=== PATIENT | female | born 1965 | race Caucasian/White ===

== ENCOUNTER → 2016-12-24 | Outpatient (CLI) | payer MEDICARE, OTHER ==
[~2016-12-24] MED LIST: LORT5TAB PO; MEDR4PAK3 PO; Z.0.NO CURRENT MEDS
--- NOTE | 2016-12-24 15:55 | MG ---
cc: ANABELLA TERESA M.D. Lab No: Date: 12/24/2016 Age: Sex: F Race: TEST NUMBER [id number] TECHNIQUE 17 channel EEG. DESCRIPTION The background rhythm is a symmetrical alpha rhythm, frequency 8 Hz, amplitude 20 microvolts. There is occasional muscle artifact and eye movement artifact. Hyperventilation was done with no change in background rhythm, during drowsiness there is mild slowing in the theta range. No lateralizing features are identified and no epileptic features identified. Photic stimulation results in a fairly well-developed symmetrical driving response. INTERPRETATION Normal EEG. MD NEVILLE Payne/FLAKITO /3:47 PM /3:57 PM
== END ==
LOC: HEEG 08:14
PROVIDERS: ATTEND Psychiatry & Neurology Neurology
DX: R42 Dizziness and giddiness (principal)
CPT/HCPCS: 95819

== ENCOUNTER 2017-04-11 16:04 | Emergency (ER) | payer MEDICARE, OTHER ==
[~2017-04-11] VITALS: Ht 172.7 cm; Wt 108.0 kg
[2017-04-11] MEDS ORDERED: IOHEXOL 350 MG/ML 10 ML VIAL (for RAD DIAG) IVCONTRAST ONE (16:05)
[2017-04-11 16:06] VITALS: BP 171/87; PULSE 72; RESP 14; TEMP 97.9; O2SAT 98
[2017-04-11] MEDS ORDERED: SODIUM CHLOR 0.9% 1000 ML INJ 1,000 ML IV SCH (16:43)
[2017-04-11] MEDS ORDERED: ONDANSETRON HCL 4 MG/2 ML VIAL IVP ONE (16:45)
[2017-04-11] MEDS ORDERED: SODIUM CHLORIDE 0.9% FLUSH 10 ML FLUSH IV FLUSH PRN (16:45)
[2017-04-11 16:59] VITALS: RESP 16; O2SAT 98
[2017-04-11] MEDS ORDERED: DIVA250T PO (17:12)
[2017-04-11] MEDS ORDERED: DIME120C PO (17:12)
[2017-04-11 17:34] LABS: AUTOMATED NEUTROPHIL # 7.8 TH/MM3 (1.8-7.7); BASOPHIL % 0.3 % (0.0-2.0); EOSINOPHIL # 3.6 TH/MM3 (0-0.4); EOSINOPHIL % 26.1 % (0.0-4.0); HEMATOCRIT 45.4 % (35.0-46.0); LYMPH % 11.3 % (9.0-44.0); LYMPHOCYTE # 1.6 TH/MM3 (1.0-4.8); MEAN CELL VOLUME 92.9 FL (80.0-100.0); MEAN CORPUSCULAR HEMOGLOBIN 32.7 PG (27.0-34.0); MEAN CORPUSCULAR HGB CONC 35.2 % (32.0-36.0); MEAN PLATELET VOLUME 8.3 FL (7.0-11.0); MONO % 5.5 % (0.0-8.0); MONOCYTE # 0.8 TH/MM3 (0-0.9); NEUT % 56.8 % (16.0-70.0); PLATELET COUNT 189 TH/MM3 (150-450); RED BLOOD COUNT 4.89 MIL/MM3 (4.00-5.30); RED CELL DISTRIBUTION WIDTH 13.4 % (11.6-17.2); WHITE BLOOD COUNT 13.8 TH/MM3 (4.0-11.0)
[2017-04-11 17:44] LABS: INTERNATIONAL NORMALIZED RATIO 1.1 RATIO
[2017-04-11 17:50] VITALS: BP 145/68; PULSE 67; RESP 16; TEMP 97.8; O2SAT 99
[2017-04-11 17:50] LABS: AST (GOT) 29 U/L (15-37); BICARBONATE 34.5 MEQ/L (21.0-32.0); BLOOD UREA NITROGEN 8 MG/DL (7-18); CALCIUM 9.8 MG/DL (8.5-10.1); CHLORIDE 102 MEQ/L (98-107); GLOMERULAR FILTRATION RATE 52 ML/MIN (>89); GLUCOSE,RANDOM 99 MG/DL (74-106); SODIUM (NA) 138 MEQ/L (136-145)
[2017-04-11 17:51] LABS: ALT (GPT) 55 U/L (10-53)
[2017-04-11 17:51] LABS: BILIRUBIN, URINE NEG (NEG); BLOOD, URINE NEG (NEG); GLUCOSE,URINE NEG (NEG); KETONE, URINE NEG (NEG); NITRITE,URINE NEG (NEG); SQUAMOUS EPITHELIAL CELL URINE <1 /hpf (0-5); URINE COLOR LIGHT-YELLOW (YELLW/STRAW); URINE LEUKOCYTE ESTERASE NEG (NEG)
--- NOTE | 2017-04-11 17:51 | PD ---
HPI Chief Complaint: GI Complaint Time Seen by Provider: 16:33 Travel History International Travel<30 days: No Contact w/Intl Traveler<30days: No Traveled to known affect area: No History of Present Illness HPI 51-year-old female with PMH of MS presents to the ED for evaluation of "a few weeks" history of left upper quadrant abdominal pain, nausea, nonbilious vomiting and loose stools. She states that the pain has been intermittent, waxing and waning from a 3-9/10 for the last couple weeks, more constant over the last 3 days. She denies fever, chills, chest pain, palpitations, dysuria. She states that she began taking a Tecfidera for MS and suspects this may be related to her symptoms. She states that she doesn't want to stop taking the medication, because it has been helping her MS symptoms. She endorses history of laparoscopic cholecystectomy. She denies alcohol or illicit drug use. PFSH Past Medical History Neurologic: Yes (MS) Tetanus Vaccination: > 5 Years Influenza Vaccination: Yes ?: Not Menopausal: Yes : 3 Para: 3 Tubal Ligation: Yes Past Surgical History Cholecystectomy: Yes Other Surgery: Yes (thyrodectomy ) Social History Alcohol Use: No Tobacco Use: Yes (1 PPd) Substance Use: No Allergies-Medications (Allergen,Severity, Reaction): Coded Allergies: No Known Allergies (Verified Adverse Reaction, Unknown, 04/11/17) Reported Meds & Prescriptions Reported Meds & Active Scripts Active Zofran Odt (Ondansetron Odt) 4 Mg Tab 4 Mg SL Q8HR PRN Reported Tecfidera (Dimethyl Fumarate) 120 Mg Cap 120 Mg PO BID For [address] (Divalproex Sodium) 250 Mg Tabdr 250 Mg PO BID Review of Systems Except as stated in HPI: all other systems reviewed are Neg Physical Exam Narrative GENERAL: Well-nourished, well-developed obese white female in no acute distress. SKIN: Focused skin assessment warm/dry. HEAD: Normocephalic. EYES: No scleral icterus. No injection or drainage. NECK: Supple, trachea midline. No JVD or lymphadenopathy. CARDIOVASCULAR: Regular rate and rhythm without murmurs, gallops, or rubs. RESPIRATORY: Breath sounds clear and equal bilaterally. No accessory muscle use. GASTROINTESTINAL: Abdomen soft, nondistended. Tender to palpation in the left upper quadrant. Active bowel sounds. No palpable masses. MUSCULOSKELETAL: No cyanosis, or edema. BACK: Nontender without obvious deformity. No CVA tenderness. Data Data Last Documented VS Vital Signs Date Time Temp Pulse Resp B/P (MAP) Pulse Ox O2 Delivery O2 Flow Rate FiO2 04/11/17 20:24 04/11/17 20:00 70 18 96 Room Air 04/11/17 17:50 97.8 Orders Orders Complete Blood Count With Diff (04/11/17 16:43) Comprehensive Metabolic Panel (04/11/17 16:43) Lipase (04/11/17 16:43) Lactic Acid (04/11/17 16:43) Prothrombin Time / Inr (Pt) (04/11/17 16:43) Act Partial Throm Time (Ptt) (04/11/17 16:43) Urinalysis - C+S If Indicated (04/11/17 16:43) Ct Abd/Pel W Iv Contrast(Rout) (04/11/17 16:43) Iv Access Insert/Monitor (04/11/17 16:43) Ecg Monitoring (04/11/17 16:43) Oximetry (04/11/17 16:43) Ondansetron Inj (Zofran Inj) (04/11/17 16:45) Sodium Chlor 0.9% 1000 Ml Inj (Ns 1000 M (04/11/17 16:43) Sodium Chloride 0.9% Flush (Ns Flush) (04/11/17 16:45) Iohexol 350 Inj (Omnipaque 350 Inj) (04/11/17 16:05) Famotidine Inj (Pepcid Inj) (04/11/17 20:00) Al-Mag Hy-Si 40-40-4 Mg/Ml Liq (Mag-Al P (04/11/17 20:00) Lidocaine 2% Viscous (Xylocaine 2% Visco (04/11/17 20:00) Ed Discharge Order (04/11/17 20:06) Labs Laboratory Tests Test 04/11/17 17:00 04/11/17 17:20 04/11/17 17:35 Lactic Acid Level 1.2 mmol/L White Blood Count 13.8 TH/MM3 Red Blood Count 4.89 MIL/MM3 Hemoglobin 16.0 GM/DL Hematocrit 45.4 % Mean Corpuscular Volume 92.9 FL Mean Corpuscular Hemoglobin 32.7 PG Mean Corpuscular Hemoglobin Concent 35.2 % Red Cell Distribution Width 13.4 % Platelet Count 189 TH/MM3 Mean Platelet Volume 8.3 FL Neutrophils (%) (Auto) 56.8 % Lymphocytes (%) (Auto) 11.3 % Monocytes (%) (Auto) 5.5 % Eosinophils (%) (Auto) 26.1 % Basophils (%) (Auto) 0.3 % Neutrophils # (Auto) 7.8 TH/MM3 Lymphocytes # (Auto) 1.6 TH/MM3 Monocytes # (Auto) 0.8 TH/MM3 Eosinophils # (Auto) 3.6 TH/MM3 Basophils # (Auto) 0.0 TH/MM3 CBC Comment DIFF FINAL Differential Comment Prothrombin Time 11.0 SEC Prothromb Time International Ratio 1.1 RATIO Activated Partial Thromboplast Time 28.4 SEC Blood Urea Nitrogen 8 MG/DL Creatinine 1.10 MG/DL Random Glucose 99 MG/DL Total Protein 7.4 GM/DL Albumin 4.0 GM/DL Calcium Level 9.8 MG/DL Alkaline Phosphatase 84 U/L Aspartate Amino Transf (AST/SGOT) 29 U/L Alanine Aminotransferase (ALT/SGPT) 55 U/L Total Bilirubin 0.5 MG/DL Sodium Level 138 MEQ/L Potassium Level 4.5 MEQ/L Chloride Level 102 MEQ/L Carbon Dioxide Level 34.5 MEQ/L Anion Gap 2 MEQ/L Estimat Glomerular Filtration Rate 52 ML/MIN Lipase 67 U/L Urine Color LIGHT-YELLOW Urine Turbidity CLEAR Urine pH 7.0 Urine Specific [place] 1.005 Urine Protein NEG mg/dL Urine Glucose (UA) NEG mg/dL Urine Ketones NEG mg/dL Urine Occult Blood NEG Urine Nitrite NEG Urine Bilirubin NEG Urine Urobilinogen LESS THAN 2.0 MG/DL Urine Leukocyte Esterase NEG Urine RBC LESS THAN 1 /hpf Urine WBC 1 /hpf Urine Squamous Epithelial Cells <1 /hpf Microscopic Urinalysis Comment CULT NOT INDICATED MDM Medical Decision Making Medical Screen Exam Complete: Yes Emergency Medical Condition: Yes Differential Diagnosis pancreatitis versus hiatal hernia versus biliary colic versus other Narrative Course 51-year-old female with PMH of MS presents to the ED for evaluation of "a few weeks" history of LUQ pain, nausea, nonbilious vomiting and loose stools. She states that the pain has been intermittent, waxing and waning from a 3-9/10 for the last couple weeks, more constant over the last 3 days. She states that she began taking a Tecfidera for MS and suspects this may be related to her symptoms. She endorses history of laparoscopic cholecystectomy. She denies alcohol or illicit drug use. Vitals reviewed. Physical exam reveals tenderness to palpation in the left upper quadrant, otherwise unremarkable. IV was established. Patient was administered 1 L normal saline, 4 mg Zofran. I offered her pain medications which she declines. Total Protein 7.4, Albumin 4.0, Calcium Level 9.8, Alkaline Phosphatase 84, Aspartate Amino Transf (AST/SGOT) 29, Alanine Aminotransferase (ALT/SGPT) 55 H, Total Bilirubin 0.5 Coags: INR 1.1. UA: No culture indicated. CT abdomen and pelvis: No abnormality identified to explain LUQ pain. No acute findings identified. No acute findings included multi fibroid uterus, sigmoid diverticulosis and hepatic steatosis. Per radiology read. Discussed the results of the workup with the patient. We reviewed the side effects protect that area which are significant for abdominal pain, nausea, loose stools. She states that her pain is now at a level III. Should like to try a GI cocktail. Ultimately I think her symptoms are likely side effects from her medication. I advised her to follow-up with Dr. Harrison to review possibly decreasing the medication. She is provided a few doses of Zofran, instructed to return for worsening symptoms. She is agreeable with the plan. She is stable and discharged home. Diagnosis Primary Impression: Abdominal pain Qualified Codes: R10.12 - Left upper quadrant pain Additional Impression: Medication side effects Referrals: Primary Care Physician Patient Instructions: Abdominal Pain (ED), Diet for Stomach Ulcers and Gastritis (ED), General Instructions Additional Instructions: Rest, hydrate. Eat a bland diet for the next few days and gradually introduce new foods. Take Zofran as needed for nausea and vomiting. Talk with your doctor about the side effect of Tecfidera. Always take Techfidera with food. Follow up with the primary care provider and hired hand. Return to the ED for worsening symptoms or any urgent/ emergent medical condition. Med/Other Pt SpecificInfo: Prescription(s) given Scripts Ondansetron Odt (Zofran Odt) 4 Mg Tab 4 MG SL Q8HR Y for Nausea/Vomiting, #5 TAB 0 Refills Prov: May Sanchez MD 04/11/17 Disposition: 01 DISCHARGE HOME Condition: Stable Stefanie Odonnell Apr 11, 2017 17:51
[2017-04-11 17:54] LABS: ALKALINE PHOSPHATASE 84 U/L (45-117); TOTAL BILIRUBIN ADULT 0.5 MG/DL (0.2-1.0); TOTAL PROTEIN 7.4 GM/DL (6.4-8.2)
--- NOTE | 2017-04-11 19:08 | RADRPT ---
EXAM DATE/TIME: 04/11/2017 18:51 [facility] COMPARISON: No previous studies available for comparison. INDICATIONS : Left upper quadrant pain with nausea and vomiting. IV CONTRAST: 80 cc Omnipaque 350 (iohexol) IV ORAL CONTRAST: No oral contrast ingested. RADIATION DOSE: 25.90 CTDIvol (mGy) ; Patient body habitus MEDICAL HISTORY : Multple sclerosis. SURGICAL HISTORY : Cholecystectomy. ENCOUNTER: Initial ACUITY: 3 days PAIN SCALE: 7/10 LOCATION: Left upper quadrant TECHNIQUE: Volumetric scanning of the abdomen and pelvis was performed. Using automated exposure control and ad justment of the mA and/or kV according to patient size, radiation dose was kept as low as reasonably achievable to obtain optimal diagnostic quality images. DICOM format image data is available electro nically for review and comparison. FINDINGS: LOWER LUNGS: The visualized lower lungs are clear. LIVER: Liver density suggesting a ptosis. No liver lesion is identified. There are clips in the gallbladder fossa related to prior cholecystectomy. There is no dilation of the biliary tree. SPLEEN: Normal size without lesion. A splenule is present. PANCREAS: Within normal limits. KIDNEYS: Normal in size and shape. There is no mass, stone or hydronephrosis. ADRENAL GLANDS: Within normal limits. VASCULAR: There is no aortic aneurysm. BOWEL/MESENTERY: The stomach, small bowel, and colon demonstrate no acute abnormality. There is no free intraperitone al air or fluid. Appendix and terminal ileum are normal. There is mild sigmoid diverticulosis. There are no findings to indicate obstruction. ABDOMINAL WALL: Within normal limits. RETROPERITONEUM: There is no lymphadenopathy. BLADDER: No wall thickening or mass. REPRODUCTIVE: Uterus demonstrates a lobulated contour with right-sided exophytic mass measuring 2.1 cm and a hypode nse fundal mass measuring 1.9 cm. Tubal ligation clips are present. Ovaries demonstrate no abnormalit y. INGUINAL: There is no lymphadenopathy or hernia. MUSCULOSKELETAL: There are degenerative changes of the lumbar spine but no acute abnormality is seen. CONCLUSION: 1. No abnormality is identified to explain the left upper quadrant pain. No acute finding is identifi ed. 2. Nonacute findings include multi-fibroid uterus, sigmoid diverticulosis, and hepatic steatosis. Mo Howard MD on April 11, 2017 at 19:02 Board Certified Radiologist. This report was verified electronically.
[2017-04-11] MEDS ORDERED: ZOFR4TAB3 SL (19:39)
[2017-04-11 20:00] VITALS: BP 142/60; PULSE 70; RESP 18; O2SAT 96
[2017-04-11] MEDS ORDERED: ALUMINUM/MAGNESIUM/SIMETH 30 ML CUP PO ONE (20:00)
[2017-04-11] MEDS ORDERED: FAMOTIDINE 20 MG/2 ML VIAL IV PUSH ONE (20:00)
[2017-04-11] MEDS ORDERED: LIDOCAINE VISCOUS 2% SOLN 15 ML UDC PO ONE (20:00)
== END 2017-04-11 20:27 | disposition home or self-care (01) ==
LOC: NEPC 16:04
DX: R10.12 Left upper quadrant pain (principal); F17.200 Nicotine dependence, unspecified, uncomplicated
CPT/HCPCS: 74177; 80053; 81001; 83605; 83690; 85025; 85610; 85730; 96361; 96374; 96375; 99284; J2405; J7030; Q9967

== ENCOUNTER 2018-04-11 07:09 | Inpatient (IN) ==
[2018-04-11] MEDS ORDERED: Sod Chloride 0.9% Inj 1,000 ML IV.SIG ONE (07:38)
[2018-04-11] MEDS ORDERED: MethylPREDNISolone Sod Suc Inj 250 MG in Sodium Chlor 0.9% Inj 100 ML IV.SIG ONE (07:43)
--- NOTE | 2018-04-11 07:54 | ED ---
HPI General Chief Complaint: Dizziness Stated Complaint: MS related Time Seen by Provider: 04/11/18 07:19 Source: patient Mode of arrival: ambulatory Limitations: no limitations History of Present Illness HPI Narrative: heme is dr maureen markham pmhx: MS on tysarbi, pshx: gb, partial thyroidectomy. patient states that she has been having more progressive symptoms of dizziness, lightheaded, double vision that is transient, feels tingling to left side of face and left arm, all of these are her usual symptoms of MS Flare onset of 2 days. patient denies n/v/d/fever/cough/runny nose and sore throat. MD complaint: Reports dizziness Timing: gradual onset Description: Reports sense of movement, off-balance and difficulty walking History of similar episodes: Yes History of trauma: No Severity: mild Relieving factors: nothing Exacerbating factors: nothing Related Data Home Medications Medication Instructions Recorded Confirmed natalizumab [Tysabri] 300 mg IV Q28D 04/11/18 04/11/18 Allergies Allergy/AdvReac Type Severity Reaction Status Date / Time No Known Allergies Allergy Verified 04/11/18 07:20 Review of Systems ROS: all other systems reviewed are negative PMFSH History History Provided By: Patient Medical History Medical History FH: cholecystectomy (Acute) Multiple sclerosis (Acute) Surgical History Surgical History H/O partial thyroidectomy (Acute) Social History Social History Substance History: No History of Abuse Smoking Status: Current every day smoker Tobacco Type: Cigarettes How Often Do You Have a Drink Containing Alcohol: Never Recent Travel in [facility] within the Last 8 Weeks: No Recent Out of Country Travel within the Last 8 Weeks: No Immunization History Tetanus Immunization: Unsure Exam Narrative Exam Narrative: GENERAL: Well-nourished, well-developed patient in no apparent distress. SKIN: Warm and dry. HEAD: Atraumatic. Normocephalic. EYES: Pupils equal and round. No scleral icterus. No injection or drainage. ENT: No nasal bleeding or discharge. Mucous membranes pink and moist. NECK: Trachea midline. No JVD. CARDIOVASCULAR: Regular rate and rhythm. no rubs or gallops RESPIRATORY: No accessory muscle use. Clear to auscultation. Breath sounds equal bilaterally. GASTROINTESTINAL: Abdomen soft, non-tender, nondistended. No rebound or guarding MUSCULOSKELETAL: Extremities without clubbing, cyanosis, or edema. No obvious deformities. NEUROLOGICAL: Awake and alert. No obvious cranial nerve deficits. Motor grossly within normal limits. Five out of 5 muscle strength in the arms and legs. Normal speech. PSYCHIATRIC: Appropriate mood and affect; insight and judgment normal. Course Initial Documented Vital Signs Temperature 97.6 F 04/11/18 07:11 Pulse Rate 84 04/11/18 07:11 Respiratory Rate 18 04/11/18 07:11 Blood Pressure 159/80 H 04/11/18 07:11 Pulse Oximetry 100 04/11/18 07:11 Last Documented Vital Signs Temperature 97.6 F 04/11/18 07:11 Pulse Rate 84 04/11/18 07:11 Respiratory Rate 18 04/11/18 07:11 Blood Pressure 159/80 H 04/11/18 07:11 Pulse Oximetry 100 04/11/18 07:11 Medical Decision Making [facility] Narrative Medical decision making narrative: Chest x-ray read as negative for acute process by radiologist Patient has reactive leukocytosis of 12.5 but without any left shift. No evidence of any anemia and also normal platelet count Coagulation profile normal Electrolytes are all within normal limits Normal liver function Renal insufficiency with a creatinine of 1.22 and a GFR estimated of 46 this is relatively close to patient's previous going back to March 2017 Medical Screen Exam Complete: Yes Emergency Medical Condition: Yes Medical Records Medical records reviewed: Yes I reviewed the patient's medical records. Lab Data Result diagrams: 04/11/18 07:40 04/11/18 07:40 Lab Results 04/11/18 04/11/18 04/11/18 Range/Units 07:40 07:40 08:19 WBC 12.5 H (4.0-11.0) th/mm3 RBC 5.03 (4.00-5.30) mil/mm3 Hgb 15.9 H (11.6-15.3) gm/dL Hct 45.6 (35.0-46.0) % MCV 90.8 (80.0-100.0) fL MCH 31.6 (27.0-34.0) pg MCHC 34.8 (32.0-36.0) % RDW 13.2 (11.6-17.2) % Plt Count 279 (150-450) th/mm3 MPV 8.7 (7.0-11.0) fL Neut % (Auto) 54.1 (16.0-70.0) % Lymph % (Auto) 36.0 (9.0-44.0) % [place] % (Auto) 8.5 H (0.0-8.0) % Eos % (Auto) 0.9 (0.0-4.0) % Baso % (Auto) 0.5 (0.0-2.0) % Neut # (Auto) 6.8 (1.8-7.7) th/mm3 Lymph # (Auto) 4.5 (1.0-4.8) th/mm3 [place] # (Auto) 1.1 H (0.0-0.9) th/mm3 Eos # (Auto) 0.1 (0.0-0.4) th/mm3 Baso # (Auto) 0.1 (0.0-0.2) th/mm3 WBC Differential . Differential Comment Auto diff final Sodium 141 (136-145) meq/L Potassium 3.8 (3.5-5.1) meq/L Chloride 108 H (98-107) meq/L Carbon Dioxide 24.1 (21.0-32.0) meq/L Anion Gap 9 (5-15) meq/L BUN 17 (7-18) mg/dL Creatinine 1.22 H (0.50-1.00) mg/dL Estimated GFR 46 L (>89) mL/min Random Glucose 119 H (74-106) mg/dL Calcium 9.0 (8.5-10.1) mg/dL Total Bilirubin 0.5 (0.2-1.0) mg/dL AST 16 (15-37) U/L ALT 23 (10-53) U/L Alkaline Phosphatase 113 (45-117) U/L Total Protein 8.1 (6.4-8.2) g/dL Albumin 4.4 (3.4-5.0) g/dL Urine Color (Yellw/Straw) Urine Clarity (Clear) Urine pH (5.0-8.5) Ur Specific [place] (1.002-1.035) Urine Protein (Neg-Trace) mg/dL Urine Glucose (UA) (Negative) mg/dL Urine Ketones (Negative) mg/dL Urine Occult Blood (Negative) Urine Nitrate (Negative) Urine Bilirubin (Negative) Urine Urobilinogen (Less than 2) mg/dL Ur Leukocyte Esterase (Negative) Urine RBC (0-3) /hpf Urine WBC (0-5) /hpf Ur Squamous Epith Cells (0-5) /hpf Urine Bacteria (None) /hpf Micro UA Comment Ur Microscopic Review Urine Culture Comments Urine Opiates Screen Neg (Neg) Ur Barbiturates Screen Neg (Neg) Ur Amphetamines Screen Neg (Neg) U Benzodiazepines Scrn Neg (Neg) Urine Cocaine Screen Neg (Neg) U Cannabinoids Screen Neg (Neg) 04/11/18 Range/Units 08:19 WBC (4.0-11.0) th/mm3 RBC (4.00-5.30) mil/mm3 Hgb (11.6-15.3) gm/dL Hct (35.0-46.0) % MCV (80.0-100.0) fL MCH (27.0-34.0) pg MCHC (32.0-36.0) % RDW (11.6-17.2) % Plt Count (150-450) th/mm3 MPV (7.0-11.0) fL Neut % (Auto) (16.0-70.0) % Lymph % (Auto) (9.0-44.0) % [place] % (Auto) (0.0-8.0) % Eos % (Auto) (0.0-4.0) % Baso % (Auto) (0.0-2.0) % Neut # (Auto) (1.8-7.7) th/mm3 Lymph # (Auto) (1.0-4.8) th/mm3 [place] # (Auto) (0.0-0.9) th/mm3 Eos # (Auto) (0.0-0.4) th/mm3 Baso # (Auto) (0.0-0.2) th/mm3 WBC Differential Differential Comment Sodium (136-145) meq/L Potassium (3.5-5.1) meq/L Chloride (98-107) meq/L Carbon Dioxide (21.0-32.0) meq/L Anion Gap (5-15) meq/L BUN (7-18) mg/dL Creatinine (0.50-1.00) mg/dL Estimated GFR (>89) mL/min Random Glucose (74-106) mg/dL Calcium (8.5-10.1) mg/dL Total Bilirubin (0.2-1.0) mg/dL AST (15-37) U/L ALT (10-53) U/L Alkaline Phosphatase (45-117) U/L Total Protein (6.4-8.2) g/dL Albumin (3.4-5.0) g/dL Urine Color Yellow (Yellw/Straw) Urine Clarity Hazy H (Clear) Urine pH 6.0 (5.0-8.5) Ur Specific [place] 1.014 (1.002-1.035) Urine Protein Negative (Neg-Trace) mg/dL Urine Glucose (UA) Negative (Negative) mg/dL Urine Ketones Trace H (Negative) mg/dL Urine Occult Blood Negative (Negative) Urine Nitrate Negative (Negative) Urine Bilirubin Negative (Negative) Urine Urobilinogen Less than 2 (Less than 2) mg/dL Ur Leukocyte Esterase Negative (Negative) Urine RBC Less than 1 (0-3) /hpf Urine WBC Less than 1 (0-5) /hpf Ur Squamous Epith Cells 1 (0-5) /hpf Urine Bacteria Rare H (None) /hpf Micro UA Comment Culture not ind Ur Microscopic Review Not Reportable Urine Culture Comments Culture not ind Urine Opiates Screen (Neg) Ur Barbiturates Screen (Neg) Ur Amphetamines Screen (Neg) U Benzodiazepines Scrn (Neg) Urine Cocaine Screen (Neg) U Cannabinoids Screen (Neg) Imaging Data Radiologist's impression: Chest X-Ray 04/11/18 07:38 CONCLUSION: Negative for acute process Discharge Plan Discharge Disposition Patient Disposition: ED Admit(ED Internal Use Only) Discharge Condition Condition: Stable Discharge Details Diagnosis: Multiple sclerosis exacerbation Physicians Team ED Provider: Jose F Franklin Primary Care Provider: Primary Care MinnaiJune Rxs /Orders / Referrals /Forms Prescriptions: No Action natalizumab [Tysabri] 300 mg/15 mL Solution 300 mg IV Q28D RF: 0 Status ED Status: With Doctor
--- NOTE | 2018-04-11 08:07 | XR ---
EXAM DATE: 04/11/2018 8:01 AM EST AGE/SEX: 52 years / Female INDICATIONS: Cough and dizziness. CLINICAL DATA: This is the patient's initial encounter. Patient reports that signs and symptoms have been present for 4 - 6 days and indicates a pain score of 0/10. MEDICAL/SURGICAL HISTORY: Multiple sclerosis. Cholecystectomy. COMPARISON: No prior exams available for comparison. FINDINGS: A single AP view of the chest demonstrates the lungs to be symmetrically aerated without evidence of mass, infiltrate or effusion. The cardiomediastinal contours are unremarkable. Osseous structures a re intact. CONCLUSION: Negative for acute process Electronically signed by: Danny Novak MD Board Certified Radiologist 04/11/2018 8:06 AM EST
[2018-04-11 08:22] LABS: Baso # (Auto) 0.1 th/mm3 (0.0-0.2); Baso % (Auto) 0.5 % (0.0-2.0); Eos # (Auto) 0.1 th/mm3 (0.0-0.4); Eos % (Auto) 0.9 % (0.0-4.0); Hematocrit 45.6 % (35.0-46.0); Hemoglobin 15.9 gm/dL (11.6-15.3); Lymph # (Auto) 4.5 th/mm3 (1.0-4.8); Mean Corpuscular HGB Conc 34.8 % (32.0-36.0); Mean Corpuscular Hemoglobin 31.6 pg (27.0-34.0); Mean Corpuscular Volume 90.8 fL (80.0-100.0); Mean Platelet Volume 8.7 fL (7.0-11.0); Mono # (Auto) 1.1 th/mm3 (0.0-0.9); Mono % (Auto) 8.5 % (0.0-8.0); Neut # (Auto) 6.8 th/mm3 (1.8-7.7); Neut % (Auto) 54.1 % (16.0-70.0); Platelet Count 279 th/mm3 (150-450); Red Blood Count 5.03 mil/mm3 (4.00-5.30); Red Cell Distribution Width 13.2 % (11.6-17.2); White Blood Count 12.5 th/mm3 (4.0-11.0)
[2018-04-11 08:33] LABS: Bacteria,Urine Rare /hpf; Bilirubin,Urine Negative (Negative); Clarity,Urine Hazy (Clear); Color,Urine Yellow (Yellw/Straw); Glucose,Urine (UA) Negative (Negative); Leukocyte Esterase,Urine Negative (Negative); Nitrite,Urine Negative (Negative); Specific Gravity,Urine 1.014 (1.002-1.035); Squamous Epithelial Cell,Urine 1 /hpf (0-5)
[2018-04-11 08:36] LABS: Albumin 4.4 g/dL (3.4-5.0); Anion Gap 9 meq/L (5-15); Aspartate Aminotransferase 16 U/L (15-37); Blood Urea Nitrogen 17 mg/dL (7-18); Carbon Dioxide 24.1 meq/L (21.0-32.0); Chloride 108 meq/L (98-107); Glomerular Filtration Rate 46 mL/min (>89); Glucose,Random 119 mg/dL (74-106); Potassium 3.8 meq/L (3.5-5.1); Sodium 141 meq/L (136-145)
[2018-04-11 08:38] LABS: Alanine Aminotransferase 23 U/L (10-53); Alkaline Phosphatase 113 U/L (45-117); Total Protein 8.1 g/dL (6.4-8.2)
[2018-04-11 08:39] LABS: Amphetamine Screen,Urine Neg (Neg); Barbiturate Screen,Urine Neg (Neg); Cannabinoid Screen,Urine Neg (Neg); Cocaine Screen,Urine Neg (Neg)
[2018-04-11 08:46] LABS: Opiate Screen,Urine Neg (Neg)
--- NOTE | 2018-04-11 09:53 | P.HPIM ---
History of Present Illness Primary Care Physician: No Primary Care Physician Chief Complaint: ' I've got my MS symptoms back'. History of Present Illness: patient is a 52 y/o female with history of MS- on Tysabri- last infusion two weeks ago, presented to ER with worsening tingling of the left upper and lower extremity and right eye diplopia. she says that right after her Tysabri infusion she started to have some ' cold symptoms' after which she started to have some tingling of the left hand and leg and had some right eye diplopia. she says that ' she's been somewhat off balance' recently. she says that she probably has some low grade fever at home.she's being followed up by and . Review of Systems Review of Systems: all other systems reviewed are negative [facility] Medical History Medical History FH: cholecystectomy (Acute) Multiple sclerosis (Acute) Surgical History Surgical History H/O partial thyroidectomy (Acute) Social History Social History Substance History: No History of Abuse Second Hand Smoke Exposure: No Smoking Status: Current every day smoker Tobacco Type: Cigarettes How Often Do You Have a Drink Containing Alcohol: Never Recent Travel in [facility] within the Last 8 Weeks: No Recent Out of Country Travel within the Last 8 Weeks: No Immunization History Tetanus Immunization: Unsure Medications and Allergies Allergies Allergy/AdvReac Type Severity Reaction Status Date / Time No Known Allergies Allergy Verified 04/11/18 07:20 Home Medications Medication Instructions Recorded Confirmed Type natalizumab [Tysabri] 300 mg IV Q28D 04/11/18 04/11/18 History topiramate 50 mg PO DAILY 04/11/18 04/11/18 History topiramate [Topamax] 50 mg PO DAILY 04/11/18 04/11/18 History Active Medications: Active Medications Sodium Chloride (Ns Flush) 2 ml IV.FLUSH PRN PRN PRN Reason: FLUSH AFTER USING IV ACCESS Physical Exam Vital signs: Vital Signs 04/11/18 07:11 Temperature 97.6 F Pulse Rate 84 Respiratory Rate 18 Blood Pressure 159/80 H Pulse Oximetry 100 Intake & Output 04/10/18 04/11/18 04/11/18 18:59 06:59 18:59 Intake Total 1104 / 1104 Balance 1104 / 1104 Weight 105.687 kg Intake: IV 1104 / 1104 SoluMEDROL Inj 250 MG In NS Inj 104 / 104 100 ML @ 200 mls/hr IV.SIG ONCE ONE Rx#:[id number] NS Inj 1,000 ML @ Wide Open IV. 1000 / 1000 SIG BOLUS ONE Rx#:[id number] Constitutional no acute distress Routine HEENT Exam Eye: Present PERRL Routine Neck Exam Present supple Routine Respiratory Exam Present CTA bilaterally Routine Cardiovascular Exam Present RRR Routine Abdominal Exam Present soft Routine Extremities Exam Comments: no pedal edema. Routine Neurological Exam Present alert and oriented X3 Results Labs CBC & Chem 7: 04/11/18 07:40 04/11/18 07:40 Imaging Impressions Chest X-Ray 04/11/18 07:38 CONCLUSION: Negative for acute process Caprini VTE Risk Assessment Caprini VTE Risk Assessment: Moderate/High Risk (score >= 2) Caprini Risk Assessment Model: Point Value = 1 Point Value = 2 Point Value = 3 Point Value = 5 Age 41-60 Minor surgery BMI > 25 kg/m2 Swollen legs Varicose veins or History of unexplained or recurrent spontaneous Oral contraceptives or hormone replacement Sepsis (< 1 month) Serious lung disease, including pneumonia (< 1 month) Abnormal pulmonary function Acute myocardial infarction Congestive heart failure (< 1 month) History of inflammatory bowel disease Medical patient at bed rest Age 61-74 Arthroscopic surgery Major open surgery (> 45 min) Laparoscopic surgery (> 45 min) Malignancy Confined to bed (> 72 hours) Immobilizing plaster cast Central venous access Age >= 75 History of VTE Family history of VTE Factor V Leiden Prothrombin [id number] Lupus anticoagulant Anticardiolipin antibodies Elevated serum homocysteine Heparin-induced thrombocytopenia Other congenital or acquired thrombophilia Stroke (< 1 month) Elective arthroplasty Hip, pelvis, or leg fracture Acute spinal cord injury (< 1 month) Prophylaxis Regimen: Total Risk Factor Score Risk Level Prophylaxis Regimen 0-1 Low Early ambulation 2 Moderate Order ONE of the following: *Sequential Compression Device (SCD) *Heparin 5000 units SQ BID 3-4 Higher Order ONE of the following medications: *Heparin 5000 units SQ TID *Enoxaparin/Lovenox 40 mg SQ daily (WT < 150 kg, CrCl > 30 mL/min) *Enoxaparin/Lovenox 30 mg SQ daily (WT < 150 kg, CrCl > 10-29 mL/min) *Enoxaparin/Lovenox 30 mg SQ BID (WT < 150 kg, CrCl > 30 mL/min) AND/OR *Sequential Compression Device (SCD) 5 or more Highest Order ONE of the following medications: *Heparin 5000 units SQ TID (Preferred with Epidurals) *Enoxaparin/Lovenox 40 mg SQ daily (WT < 150 kg, CrCl > 30 mL/min) *Enoxaparin/Lovenox 30 mg SQ daily (WT < 150 kg, CrCl > 10-29 mL/min) *Enoxaparin/Lovenox 30 mg SQ BID (WT < 150 kg, CrCl > 30 mL/min) AND *Sequential Compression Device (SCD) Assessment and Plan Plan A/P - MS exacerbation- on Tysabri- last infusion two weeks ago received IV steroids in ER- will consult neurology- will consider Hematology evaluation pending neurology recommendations. consult PT. -DVT prophylaxis with scd's. Discussed Condition With: ER physician and the patient.
[2018-04-11] MEDS: Sod Chloride 0.9% Inj 1,000 ML IV.CONT SCH ×2 (12:22→22:29)
[2018-04-11] MEDS ORDERED: Gadobutrol PF 10 MMOL/10 ML Vial (for RAD) IV.SIG ONE (16:43)
--- NOTE | 2018-04-11 17:01 | MR ---
EXAM DATE: 04/11/2018 4:54 PM EST AGE/SEX: 52 years / Female INDICATIONS: . Exacerbation of multiple sclerosis. CLINICAL DATA: This is the patient's initial encounter. Patient reports that signs and symptoms have been present for 1 day and indicates a pain score of 0/10. MEDICAL/SURGICAL HISTORY: Multiple sclerosis. Cholecystectomy. Thyroidectomy. COMPARISON: [facility] [place], CT BRAIN W/O CONTRAST, 12/04/2010. . TECHNIQUE: Multiplanar, multisequence examination of the brain was performed without and with 10 ml G adavist (gadobutrol) contrast as a single exam dose. FINDINGS: Cerebrum: The ventricles are normal for age. No evidence of midline shift, mass lesion, hemorrhage or acute infarction. No extraaxial fluid collections are seen. The pituitary gland and suprasellar cistern are normal in configuration. White Matter: Focal periventricular white matter T2 prolongation including focal lesion involving th e right body of the corpus callosum. Posterior Fossa: The cerebellum and brainstem are intact. The 4th ventricle is midline. The cerebel lopontine angle is unremarkable. The cerebellar tonsils are normal in position. Diffusion Imaging: No focal areas of restricted diffusion are seen. No evidence of acute infarction . Extracranial: The visualized portions of the orbits and paranasal sinuses are unremarkable. Post Contrast: No abnormal areas of parenchymal or dural enhancement. No evidence of blood-brain ba rrier breakdown. CONCLUSION: 1. Focal periventricular white matter signal abnormalities which involve the body of the corpus call osum on the right consistent with patient's history of multiple sclerosis. No associated abnormal enh ancement or restricted diffusion to suggest active plaque. Electronically signed by: Derrek Tobin MD Board Certified Radiologist 04/11/2018 5:00 PM EST
[2018-04-11] MEDS ORDERED: Topiramate 25 MG Tablet PO ONE (21:35)
--- NOTE | 2018-04-12 | MB ---
cc: Sander Steven MD DATE: 04/11/2018 REASON FOR CONSULTATION: Multiple sclerosis. HISTORY OF PRESENT ILLNESS: A 52-year-old female seen at the [facility] Emergency Room for evaluation of history of MS. The patient states that she has been diagnosed with MS since 2003 at [place], then she moved to [place] and follows up with Dr. Harrison and she states that "I have MS all over in my brain and in my spine." She also states that she has "a lot of lesions in my brain." However, she denies any history of lumbar puncture. She complains of symptoms of double vision, blurred vision, dizziness, occasional vertigo. Denies speech difficulty or weakness of extremity. She denies being on steroids. However, she states that she was on Copaxone or Tecfidera that did not work for her and currently she is on Tysabri. She received 2 transfusions with 20 days apart. Last transfusion was 2 weeks ago. She presents with tingling sensation in the hand and leg with some right eye double vision, and she has been somewhat off-balance recently. She follows up also with Dr. Martinez, hematology, for the transfusion aspects of Tysabri. The patient states that she has done MRIs in the past. No records are available. REVIEW OF REVIEW OF SYSTEMS: A 12-point review of system is negative, except for what is stated in the HPI. PAST MEDICAL HISTORY: Multiple sclerosis. PAST SURGICAL HISTORY: Cholecystectomy, partial thyroidectomy. SOCIAL HISTORY: No history of abuse, current everyday smoker. No alcohol. MEDICATIONS: Tysabri, topiramate. ALLERGIES: NO KNOWN ALLERGIES. FAMILY HISTORY: Noncontributory. PHYSICAL EXAMINATION: GENERAL: Awake, alert, oriented, overweight, good historian. HEENT: Atraumatic, normocephalic. Intact hearing and intact vision. NECK: Supple. No signs of meningeal irritation. No carotid bruits. CARDIOVASCULAR: Regular rate and rhythm. RESPIRATORY: Clear to auscultation. No wheezes. MUSCULOSKELETAL: Moves extremities equally. No edema. NEUROLOGIC: Awake, alert and oriented to person and place. Intact external ocular motility. No nystagmus. No diplopia. No facial asymmetry. No speech difficulty. No dysarthria or dysphasia. Moves extremities equally, 5/5 bilateral and symmetrical. Reflexes 2+ bilateral, symmetrical. Plantars are bilateral downgoing. Normal coordination. Gait is deferred. PSYCHIATRIC: Cooperative. Normal mood and behavior. No hallucinations. RESULTS: White blood cell 12.5, hemoglobin 15.9. Sodium 141, potassium 3.8, BUN 17, creatinine 1.22. LFTs normal. Urine tox is negative. IMPRESSION AND PLAN: 1. History of multiple sclerosis. 2. Follows up with Dr. Harrison, currently on Tysabri, received second dose 2 weeks ago. 3. Complains of visual blurring, vertigo, diplopia. 4. I discussed the case with Dr. Liang, the attending physician, and given that we do not have any previous imaging, the plan is to do an MRI brain with and without contrast for possible new demyelinating lesions and to set a base of her radiologic diagnosis of MS and to set a plan for further neurologic workup based on the findings on MRI of the brain. 5. There is no clinical indication to start the patient on steroids. 6. Neurology will follow up. The patient was discussed with the attending physician. Thank you for the opportunity to participate in the care of your patient. MD LANA Pablo/rw/do , 09:22 PM , 09:32 PM
[2018-04-12] MEDS ORDERED: Sodium Chloride 0.9% 2 ML Flush PRN IV.FLUSH (03:53)
[2018-04-12 07:25] VITALS: RESP 16
[2018-04-12] MEDS ORDERED: Sodium Chloride 0.9% 2 ML Flush BID IV.FLUSH SCH (09:00)
--- NOTE | 2018-04-12 10:15 | P.PNIM ---
Subjective Interval history: f/u; MS in no acute distress. looks and feels better today. no new complaints. Physical Exam Vital signs: Vital Signs 04/11/18 10:25 04/11/18 11:25 04/11/18 12:52 Temperature 96.4 F L Pulse Rate 81 66 Respiratory Rate 16 18 20 Blood Pressure 152/74 H 110/75 Pulse Oximetry 97 04/11/18 16:04 04/11/18 20:00 04/11/18 22:54 Temperature 96.7 F L 97.8 F 97.6 F Pulse Rate 78 67 62 Respiratory Rate 20 16 20 Blood Pressure 128/61 119/67 120/61 Pulse Oximetry 96 93 L 93 L 04/12/18 05:11 04/12/18 07:23 04/12/18 08:22 Temperature 97.6 F 97.4 F L 98.4 F Pulse Rate 92 H 68 107 H Respiratory Rate 18 16 16 Blood Pressure 139/76 135/74 171/80 H Pulse Oximetry 97 96 96 Intake & Output 04/11/18 04/12/18 04/12/18 18:59 06:59 18:59 Intake Total 1104 / 1104 720 / 720 300 / 300 Balance 1104 / 1104 720 / 720 300 / 300 Weight 105.687 kg Intake: IV 1104 / 1104 300 / 300 NS Inj 1,000 ML @ 84 mls/hr IV. 300 / 300 CONT .[id number] [facility] Rx#:[id number] SoluMEDROL Inj 250 MG In NS Inj 104 / 104 100 ML @ 200 mls/hr IV.SIG ONCE ONE Rx#:[id number] NS Inj 1,000 ML @ Wide Open IV. 1000 / 1000 SIG BOLUS ONE Rx#:[id number] Oral 720 / 720 Other: # Voids 4 3 Weight On Admission 105.687 kg Constitutional no acute distress Routine Respiratory Exam Present CTA bilaterally Routine Cardiovascular Exam Present RRR Routine Abdominal Exam Present soft Routine Extremities Exam Comments: no pedal edema. Routine Neurological Exam Present alert and oriented X3 Results Labs CBC & Chem 7: 04/11/18 07:40 04/11/18 07:40 Imaging Imaging: Impressions Head MRI 04/11/18 00:00 CONCLUSION: 1. Focal periventricular white matter signal abnormalities which involve the body of the corpus callosum on the right consistent with patient's history of multiple sclerosis. No associated abnormal enhancement or restricted diffusion to suggest active plaque. Assessment and Plan Plan A/P - MS - on Tysabri- last infusion two weeks ago received IV steroids in ER- MRI brain with no active plaques. neurology consult appreciated. consulted PT. -DVT prophylaxis with scd's. Discharge Planning: likely home today - after cleared by neurology and seen by PT. Progress Note: Quality VTE Deep Vein Thrombosis/Pulmonary Embolism Present on Admission: No
[2018-04-12 12:04] VITALS: BP 121/64; PULSE 69; TEMP 97.7; O2SAT 97
[2018-04-12 13:07] LABS: Baso % (Auto) 0.2 % (0.0-2.0); Hematocrit 41.5 % (35.0-46.0); Hemoglobin 14.3 gm/dL (11.6-15.3); Lymph # (Auto) 2.5 th/mm3 (1.0-4.8); Mean Corpuscular HGB Conc 34.5 % (32.0-36.0); Mean Corpuscular Hemoglobin 31.5 pg (27.0-34.0); Mean Corpuscular Volume 91.3 fL (80.0-100.0); Mean Platelet Volume 8.5 fL (7.0-11.0); Mono # (Auto) 1.5 th/mm3 (0.0-0.9); Mono % (Auto) 8.2 % (0.0-8.0); Neut # (Auto) 13.8 th/mm3 (1.8-7.7); Neut % (Auto) 77.6 % (16.0-70.0); Platelet Count 246 th/mm3 (150-450); Red Blood Count 4.55 mil/mm3 (4.00-5.30); Red Cell Distribution Width 13.3 % (11.6-17.2); White Blood Count 17.8 th/mm3 (4.0-11.0)
[2018-04-12 13:29] LABS: Calcium 8.7 mg/dL (8.5-10.1); Carbon Dioxide 22.3 meq/L (21.0-32.0); Potassium 3.6 meq/L (3.5-5.1)
[2018-04-12] MEDS: Sod Chloride 0.9% Inj 1,000 ML IV.CONT SCH (14:49)
--- NOTE | 2018-04-12 15:20 | P.PNIM ---
case was d/w and the patient was cleared for discharge with outpatient f/u.she had leukocytosis on CBC which is likely due to the dose of IV steroid that she received earlier. she's afebrile and clinically better today. she will be discharged home.
== END 2018-04-12 16:48 | disposition home or self-care (01) | DRG 60 ==
LOC: NEPE 07:09 → NEDA 09:42 → NEPGCP 12:02
PROVIDERS: ADMIT Internal Medicine; ATTEND Internal Medicine
CPT/HCPCS: 70553; 71010; 71045; 80048; 80053; 80307; 81001; 85025; 90765; 96365; 97162; 99285; A9585; J2930; J7030